=== PATIENT | male | born 1955 | race Two or more races ===

== ENCOUNTER 2017-04-02 05:40 | Day surgery (SDC) | payer OTHER ==
[~2017-04-02 05:40] MED LIST: CIPRO500 MG PO; COZAAR50 MG; DICY20TA; FLAGYL500MG PO; LEVSIN/SL0.125 MG SL
== END 2017-04-02 10:00 | disposition home or self-care (01) ==
LOC: AMB-ENDOS 05:40
DX: K57.30 Diverticulosis of large intestine without perforation or abscess without bleeding (principal); K92.1 Melena; K64.2 Third degree hemorrhoids

== ENCOUNTER 2017-12-24 10:25 | Emergency (ER) | payer OTHER ==
[~2017-12-24] VITALS: Ht 172.7 cm; Wt 99.8 kg
[2017-12-24] MEDS ORDERED: ULTRACET PO (14:17)
[2017-12-24] MEDS ORDERED: LEVSIN/SL0.125 MG PO (14:17)
== END 2017-12-24 15:07 | disposition home or self-care (01) ==
LOC: ER 10:25
DX: R10.11 Right upper quadrant pain (principal)

== ENCOUNTER 2018-01-11 04:55 | Day surgery (SDC) | payer OTHER ==
[~2018-01-11 04:55] MED LIST changes: +LEVSIN/SL0.125 MG PO; +ULTRACET PO
== END 2018-01-11 11:00 | disposition home or self-care (01) ==
LOC: EDSEX → CIR.AMB 04:55
DX: K80.10 Calculus of gallbladder with chronic cholecystitis without obstruction (principal)